=== PATIENT | male | born 1945 ===

== ENCOUNTER 2020-12-27 14:20 | Outpatient (REF) | payer MEDICARE, SELFPAY ==
[2020-12-27 14:41] LABS: INR 1.4 (0.9-1.1); Prothrombin Time 13.9 sec (9.3-11.0)
== END 2020-12-27 14:21 | disposition home or self-care (01) ==
LOC: LBN 14:20
PROVIDERS: PCP Psychiatry & Neurology Neurology; Visit Provider Psychiatry & Neurology Neurology
DX: I48.0 Paroxysmal atrial fibrillation (principal); Z79.01 Long term (current) use of anticoagulants
CPT/HCPCS: 85610